=== PATIENT | female | born 1985 | race Caucasian/White ===

== ENCOUNTER 2018-06-16 03:22 | Inpatient (IN) | payer BC ==
[2018-06-16 03:57] VITALS: BMI 32.7
[2018-06-16] MEDS ORDERED: Lidocaine 1% (PF) 30 ML VIAL SC PRN (04:19)
[2018-06-16] MEDS ORDERED: Ondansetron HCl/PF 4 MG/2 ML Vial IVP PRN ×3 (04:19→23:32)
[2018-06-16] MEDS ORDERED: NS / Oxytocin 40 units/1000ml 1,000 ML IV PRN (04:19)
[2018-06-16] MEDS ORDERED: Promethazine HCl 25 MG/ML VIAL IM PRN ×2 (04:19→06:33)
[2018-06-16] MEDS ORDERED: HYDROcodone/Acetaminophen 5/325 mg Tablet PO PRN ×4 (04:19→23:32)
[2018-06-16] MEDS ORDERED: Ibuprofen 800 MG TAB PO PRN (04:19)
[2018-06-16] MEDS ORDERED: Butorphanol Tartrate 1 MG/ML VIAL SLOW IVP PRN (04:19)
--- NOTE | 2018-06-16 04:22 | PDOC.LDHP ---
Labor and Delivery H&P HPI: Patient of Vangie cervantes EGA 39 weeks 6 days Here for CTX every 5 minutes, no LOF 33 yp X1 EDC tomorrow, here for contractions. Was 2cm in office last week, now 4cm in triage. Patient eval done at 0420. review of systems: negative as per HPI Current gestational age (weeks): 39 (6) Due date: 06/17/18 Dating criteria: last menstrual period Grav: 2 Para: 1 OB History Details: X 1 Current complications: none Abnormal US findings: No Past Medical History: PCOS Current medications: pre-katlyn vitamins Previous surgical history: other (T&A) Allergies/Adverse Reactions: Allergies Allergy/AdvReac Type Severity Reaction Status Date / Time No Known Allergies Allergy Verified 06/16/18 04:05 Social history: none - Physical Exam Vital signs reviewed and normal: yes (111/82 afebrile) General: NAD Heart: RRR Lungs: CTAB Abdomen: gravid (EFW approx 6.5#) Extremeties: no edema FHT: category 1 [place] contractions every: every 3-6min - Vaginal Exam cm dilated: 4 (BOWI) Effacement: 90% Station: -2 - Assessment L&D Assessment: term patient in labor - Plan Plan: admit to L&D, labor augmentation if indicated, informed consent obtained, anesthesia consult for pain management, other (We will direct admit to Vangie Cervantes )
[2018-06-16] MEDS: Lactated Ringer's 1,000 ML IV SCH ×4 (04:30→18:08)
[2018-06-16 05:12] LABS: Hemoglobin 11.7 g/dL (12.0-16.0); Mean Corpuscular HGB CONC 35.7 g/dL (32.0-36.0); Mean Corpuscular Hemoglobin 29.8 pg (27.0-31.0); Mean Corpuscular Volume 83.6 fL (78.0-98.0); Mean Platelet Volume 7.5 fL (7.4-10.4); Platelet Count 182 thou/uL (130-400); RBC Distribution Width 18.3 % (11.5-14.5); Red Blood Cell (RBC) Count 3.91 mill/uL (4.20-5.40); White Blood Cell (WBC) Count 10.7 thou/uL (4.8-10.8)
[2018-06-16] MEDS ORDERED: Bupivacaine 0.5% 20 ML, fentaNYL Citrate/PF 400 MCG in Sodium Chloride 0.9% 72 ML EPIDURAL SCH (05:15)
[2018-06-16] MEDS ORDERED: DISCONTINUE ALL PREVIOUS NARCOTICS FS SCH (05:15)
[2018-06-16 05:40] LABS: Syphilis Antibody Nonreactive (Nonreactive); Syphilis Antibody Index 0.04 S/CO (<1.00 Non-Reactive)
[2018-06-16 05:41] LABS: HBSAg Index 0.15 S/CO (0-0.99); HIV (1/2) Antibody/Antigen Non-Reactive (NonReactive); Hep B Surf Ag Non-Reactive S/CO (NonReactive)
[2018-06-16] MEDS ORDERED: Acetaminophen 325 MG TAB PO PRN (06:33)
[2018-06-16] MEDS ORDERED: Eucerin (Mineral Oil/Petrolatum,White) 30 gm Jar TOP PRN (06:33)
[2018-06-16] MEDS ORDERED: diphenhydrAMINE 50 MG/ML VIAL IVP PRN (06:33)
[2018-06-16] MEDS ORDERED: ePHEDrine/0.9% NaCl/PF SYRINGE 50 mg/10 ml SLOW IVP PRN (06:33)
[2018-06-16] MEDS ORDERED: Naloxone HCl 0.4 mg/ml Vial IVP PRN ×2 (06:33)
[2018-06-16] MEDS ORDERED: Lactated Ringer's 500 ML IV PRN (06:33)
[2018-06-16] MEDS ORDERED: Communication Order-Pharmacy FS SCH (06:45)
[2018-06-16] MEDS ORDERED: fentaNYL Citrate/PF 400 MCG, Bupivacaine 0.5% 20 ML in Sodium Chloride 0.9% 72 ML EPIDURAL SCH (06:45)
[2018-06-16] MEDS ORDERED: Magnesium Sulfate 20 gm/500 ml 0 GM/0 ML BAG ONE (07:11)
[2018-06-16] MEDS ORDERED: Bupivacaine/Epinephrine 0.25% 30 ML VIAL ONE (09:00)
[2018-06-16] MEDS ORDERED: Lidocaine 2% PF Inj 2 ML VIAL ONE (09:00)
[2018-06-16] MEDS ORDERED: NS w/ Oxytocin 10 units 500 ML IV SCH (09:30)
--- NOTE | 2018-06-16 09:30 | PDOC.LDPN ---
Labor & Delivery Progress Note - Subjective Subjective: comfortable - Objective Vital signs reviewed and normal: yes General: resting Uterine fundus: non tender Dilation: 5 Effacement: 90% Station: -2 FHT: category 1 (baseline 115, Moderate variability. ) [place] contractions every: every 7 mins - Assessment (1) 40 weeks gestation of Code(s): Z3A.40 - 40 WEEKS GESTATION OF Current Visit: Yes Status : Acute Plan: labor augmentation, pitocin for augmentation (Discussed AROM vs. Pitocin with patient. Start on pitocin and reevaluate after 2-3 hours. )
--- NOTE | 2018-06-16 20:12 | PDOC.OPDEL ---
OB Operative/Delivery Note Delivery Dr/Surgeon: Helen Pre-Delivery Diagnosis: active labor Procedure/Post Delivery Dx: spontaneous vaginal delivery Weeks gestation: 40 Anesthesia: epidural - Findings A Sex: male Weight: 8 lb 14 oz - 1 min: 2 - 5 min: 9 - Additional Findings/Plan Placenta delivered: spontaneous Repaired Obstetrical Laceration: none Estimated blood loss: 350 see nurse note for qualitative blood loss Compilations/Other Findings: Shoulder dystocia relieved by [facility] and suprapubic pressure. cord was immediately clamped and cut and infant was handed off to the nurses for resuscitation. Jovani team called paged to delivery and arrived at 2 mins after delivery time. Post delivery plan: routine recovery
[2018-06-16] MEDS ORDERED: Milk Of Magnesia 30 ML UDCUP PO PRN (23:32)
[2018-06-16] MEDS ORDERED: Benzocaine/Menthol 20-0.5% 60 ML CAN TOP PRN (23:32)
[2018-06-16] MEDS ORDERED: Methylergonovine 0.2 MG/ML VIAL IM PRN (23:32)
[2018-06-16] MEDS ORDERED: NS / Oxytocin 40 units/1000ml 1,000 ML IV SCH (23:32)
[2018-06-16] MEDS ORDERED: Bisacodyl 10 MG SUPP PR PRN (23:32)
[2018-06-16] MEDS ORDERED: Ibuprofen 800 MG TAB PO SCH (23:45)
[2018-06-16] MEDS ORDERED: Docusate Calcium (SURFAK) 240 MG CAP PO SCH (23:45)
[2018-06-17 05:31] LABS: Hemoglobin 9.8 g/dL (12.0-16.0); Mean Corpuscular HGB CONC 34.9 g/dL (32.0-36.0); Mean Corpuscular Hemoglobin 29.4 pg (27.0-31.0); Mean Corpuscular Volume 84.2 fL (78.0-98.0); Mean Platelet Volume 7.1 fL (7.4-10.4); Platelet Count 151 thou/uL (130-400); RBC Distribution Width 18.2 % (11.5-14.5); Red Blood Cell (RBC) Count 3.32 mill/uL (4.20-5.40); White Blood Cell (WBC) Count 16.1 thou/uL (4.8-10.8)
[2018-06-17] MEDS ORDERED: Varicella virus, LIVE 0.5 ML VIAL SC ONE (09:00)
[2018-06-17] MEDS ORDERED: Adacel (T-DAP) 0.5 ML VIAL IM ONE (09:00)
[2018-06-17] MEDS ORDERED: Measles/Mumps/Rubella 10 MCG/0.5 ML VIAL SC ONE (09:00)
[2018-06-17] MEDS: Docusate Calcium (SURFAK) 240 MG CAP PO SCH (09:06)
[2018-06-17] MEDS: Prenatal Vitamin 1 TAB PO SCH (09:06)
[2018-06-17] MEDS: Ibuprofen 800 MG TAB PO SCH ×2 (09:07→16:40)
[2018-06-17] MEDS: Ferrous Sulfate 325 MG TAB PO SCH ×2 (09:07→18:40)
--- NOTE | 2018-06-17 17:02 | PDOC.PP ---
Post Progress Note Post Day #: 1 Subjective: doing well. okay. bleeding was heavy at frst, but is slowing down to about the same as a period now. PO intake tolerated: yes Flatus: yes Ambulation: yes Vital Signs (12 hours) Temp Pulse Resp BP 06/17/18 12:34 98.2 F 72 20 122/63 06/17/18 11:24 98.1 F 73 20 06/17/18 08:47 98.1 F 73 20 06/17/18 08:26 98.1 F 73 20 106/52 L Weight Weight 179 lb - Physical Examination General: NAD Cardiovascular: no m/r/g, RRR Respiratory: clear to auscultation bilaterally, non-labored breathing Abdominal: + bowel sounds Fundus firm & at: U-1 Skin: no rash Neurological: no gross focal deficits Psychiatric: A&Ox3, normal affect Result Diagrams: 06/17/18 05:14 Additional Labs: Post Labs Blood Type O POSITIVE 06/16/18 04:55 Hep Bs Antigen Non-Reactive S/CO (NonReactive) 06/16/18 04:55 (1) 40 weeks gestation of Code(s): Z3A.40 - 40 WEEKS GESTATION OF Status: Acute (2) (spontaneous vaginal delivery) Code(s): O80 - ENCOUNTER FOR FULL-TERM UNCOMPLICATED DELIVERY Status: Acute (3) Shoulder dystocia during labor and delivery, delivered Code(s): O66.0 - OBSTRUCTED LABOR DUE TO SHOULDER DYSTOCIA Status: Acute - Assessment/Plan A: G2 now P2 P: routine care.
[2018-06-18] MEDS: Ibuprofen 800 MG TAB PO SCH ×2 (00:33→09:58)
[2018-06-18] MEDS: Docusate Calcium (SURFAK) 240 MG CAP PO SCH ×2 (00:34→09:58)
[2018-06-18 08:51] VITALS: BP 133/63; TEMP 98
[2018-06-18] MEDS: Prenatal Vitamin 1 TAB PO SCH (09:58)
[2018-06-18] MEDS: Ferrous Sulfate 325 MG TAB PO SCH (09:58)
== END 2018-06-18 16:45 | disposition home or self-care (01) | DRG 775 ==
LOC: L&D/OP 03:22 → L&D 04:29 → 3SW 23:12
PROVIDERS: ADMIT Obstetrics & Gynecology; ATTEND Advanced Practice Midwife
PROC: 10E0XZZ Delivery of Products of Conception, External Approach (ICD-10-PCS; principal; 2018-06-16)
DX: O66.0 Obstructed labor due to shoulder dystocia (principal); Z3A.40 40 weeks gestation of pregnancy; Z37.0 Single live birth
CPT/HCPCS: 36415; 51702; 85027; 86780; 86850; 86900; 86901; 87340; 87389; 99285; J2001; J2405; J3010; J3475; J3490; J7050

== ENCOUNTER 2019-11-13 09:31 | Outpatient (CLI) | payer BC ==
--- NOTE | 2019-11-13 10:23 | MMO ---
Bilateral MAMMO Bilat Diag [facility]DI+[facility]E. CLINICAL HISTORY: Patient is 34 years old and is seen for diagnostic exam. VIEWS: The views performed were: bilateral craniocaudal with tomosynthesis; bilateral mediolateral oblique with tomosynthesis; and bilateral mediolateral with tomosynthesis. FILMS COMPARED: The present examination has been compared to a prior imaging study performed at [facility] on 11/13/2019. This study has been interpreted with the assistance of computer-aided detection. MAMMOGRAM FINDINGS: There are scattered fibroglandular densities. There is an intramammary lymph node seen in the right breast. There are no suspicious masses, suspicious calcifications, or new areas of architectural distortion. IMPRESSION: THERE IS NO MAMMOGRAPHIC EVIDENCE OF MALIGNANCY. A ROUTINE FOLLOW-UP MAMMOGRAM AT AGE 41 IS RECOMMENDED. THE RESULTS OF THIS EXAM WERE SENT TO THE PATIENT. ACR BI-RADS Category 2 - Benign finding MAMMOGRAPHY NOTE: 1. A negative mammogram report should not delay a biopsy if a dominant of clinically suspicious mass is present. 2. Approximately 10% to 15% of breast cancers are not detected by mammography. 3. Adenosis and dense breasts may obscure an underlying neoplasm. Reported by: BERTA OCAMPO MD Electonically Signed: [id number]
--- NOTE | 2019-11-13 10:34 | ULT ---
FOCUSED ULTRASOUND OF THE RIGHT BREAST: DATE: 11/13/2019. COMPARISON: None. HISTORY: A 34-year-old female with a focal area of right breast tenderness. FINDINGS: Focused ultrasound of the right breast at the 10 o'clock position demonstrates normal-appearing dense breast tissue. Incidental note is made of a normal small intramammary node. No worrisome findings. IMPRESSION: BIRADS 2: Benign findings. Recommend annual screening mammography to begin at age 40. Negative imag ing should not delay biopsy of a clinically suspicious abnormality. POS: CAROLINE
== END 2019-11-13 09:32 | disposition home or self-care (01) ==
LOC: BICMAMMO 09:31
PROVIDERS: ATTEND Advanced Practice Midwife
DX: N64.4 Mastodynia (principal)
CPT/HCPCS: 77066; G0279

== ENCOUNTER 2020-08-27 13:27 | Outpatient (CLI) | payer BC ==
--- NOTE | 2020-08-27 14:33 | MMO ---
Right Breast MAMMO Unilat Diag DDI RT+VALE. CLINICAL HISTORY: Patient is 35 years old and is seen for diagnostic exam and palpable abnormality in the right breast. VIEWS: The views performed were: right craniocaudal with tomosynthesis; right mediolateral oblique with tomosynthesis; and right mediolateral with tomosynthesis. FILMS COMPARED: The present examination has been compared to prior imaging studies performed at [facility] on 11/13/2019 and 08/27/2020. This study has been interpreted with the assistance of computer-aided detection. MAMMOGRAM FINDINGS: The breast is heterogeneously dense, which could obscure a lesion on mammography. 17 mm mass retroareolar right breast. Ultrasound confirms a solid 1.5 cm mass. Recommend ultrasound guided biopsy. IMPRESSION: FINDING IN THE RIGHT BREAST IS SUSPICIOUS. BIOPSY IS RECOMMENDED. THE RESULTS OF THIS EXAM WERE SENT TO THE PATIENT. ACR BI-RADS Category 4 - Suspicious abnormality - biopsy should be considered MAMMOGRAPHY NOTE: 1. A negative mammogram report should not delay a biopsy if a dominant of clinically suspicious mass is present. 2. Approximately 10% to 15% of breast cancers are not detected by mammography. 3. Adenosis and dense breasts may obscure an underlying neoplasm. Reported by: CARLOS DELUCA MD Electonically Signed: [id number]
--- NOTE | 2020-08-27 14:33 | ULT ---
ULTRASOUND RIGHT BREAST: 08/27/20 INDICATIONS: Ultrasound right breast performed to assess a palpable abnormality in the retroareolar region. A roun ded mass density was also noted on diagnostic mammogram at this location. FINDINGS: Ultrasound confirms a circumscribed hypoechoic solid mass in the retroareolar region at 8 o'clock mary ann suring 1.5 cm. The mass has benign characteristics; however, solid mass in a 35-year-old female must be biopsied to exclude malignancy. Ultrasound guided core biopsy is recommended and will be scheduled . IMPRESSION: BI-RADS 4: Suspicious Abnormality - Biopsy Should Be Considered Usually requires biopsy. Solid mass retroareolar region. Ultrasound guided core biopsy is recommended for diagnosis. POS: OFF
== END 2020-08-27 13:28 | disposition home or self-care (01) ==
LOC: BICMAMMO 13:27
PROVIDERS: ATTEND Advanced Practice Midwife
DX: N63.10 Unspecified lump in the right breast, unspecified quadrant (principal)
CPT/HCPCS: G0279

== ENCOUNTER 2020-09-09 06:58 | Outpatient (CLI) | payer BC ==
[2020-09-09 18:40] LABS: #Eosinphils 0.1 10x3/uL (0.0-0.5); #Monocytes 0.6 10x3/uL (0.0-1.1); #Neutrophils 4.1 10x3/uL (1.5-8.4); %Basophils 0.5 % (0.0-2.0); %Eosinophils 1.9 % (0.0-6.0); %Lymphocytes 25.6 % (18.0-47.0); %Monocytes 8.8 % (0.0-10.0); %Neutrophils 62.9 % (40.0-75.0); BHCG - Serum Negative (NEGATIVE); Hemoglobin 11.7 g/dL (12.0-16.0); Mean Corpuscular HGB CONC 33.1 G/DL (32.0-36.0); Mean Corpuscular Hemoglobin 29.4 PG (27.0-33.0); Mean Corpuscular Volume 88.7 fl (80.0-100.0); Mean Platelet Volume 10.4 fl (7.4-10.4); Platelet Count 232 10x3/uL (130-400); Pregs Control Background? CLEAR/WHITE (CLR/WHITE); Pregs Control Bar Appear? YES (CONTROL BAR); RBC Distribution Width 12.7 % (11.5-14.5); Red Blood Cell (RBC) Count 3.98 10x6/uL (3.90-5.20); White Blood Cell (WBC) Count 6.5 10x3/uL (4.5-11.0)
[2020-09-09 18:42] LABS: Anion Gap 12 mmol/L (10-20); BUN (Urea Nitrogen) 15 mg/dL (7.0-18.7); Calc. Creatinine Clearance 0 mL/min (70-130); Calcium 8.5 mg/dL (7.8-10.44); Carbon Dioxide 27 mmol/L (22-29); Chloride 105 mmol/L (98-107); Estimated GFR-MDRD 87; Glucose 67 mg/dL (70-105); Potassium 3.7 mmol/L (3.5-5.1); Sodium 140 mmol/L (136-145)
[2020-09-10 15:03] LABS: SARS-CoV-2 MS2 Positive; SARS-CoV-2 N Gene Negative; SARS-CoV-2 S Gene Negative; SARS-CoV-2 by NAA Not Detected (NotDetected); SARS-CoV-2 orf1ab Negative
== END 2020-09-09 06:59 | disposition home or self-care (01) ==
LOC: LABBT 06:58
PROVIDERS: ATTEND Specialist
DX: Z01.812 Encounter for preprocedural laboratory examination (principal); N63.10 Unspecified lump in the right breast, unspecified quadrant; Z20.828 Contact with and (suspected) exposure to other viral communicable diseases
CPT/HCPCS: 80048; 84703; 85025; 87635; U0003

== ENCOUNTER 2020-09-14 10:50 | Day surgery (SDC) | payer BC ==
[2020-09-13 10:25] VITALS: BMI 25.2
[2020-09-14] MEDS ORDERED: Ketorolac Tromethamine 30 MG/ML VIAL ONE (11:22)
[2020-09-14] MEDS ORDERED: Acetaminophen 500 MG TAB ONE (11:22)
[2020-09-14] MEDS ORDERED: Ondansetron PF 4 MG/2 ML Vial ONE (11:24)
[2020-09-14] MEDS ORDERED: Lidocaine 1% PF 5 ML VIAL ONE (11:24)
[2020-09-14] MEDS ORDERED: ePHEDrine 50 MG/ML VIAL ONE (11:24)
[2020-09-14] MEDS ORDERED: Dexamethasone 20 MG/5 ML VIAL ONE (11:24)
[2020-09-14] MEDS ORDERED: PROPOFOL 200 MG/20 ML VIAL ONE (11:24)
[2020-09-14] MEDS ORDERED: PHENYLEPHRINE-NS 100 MCG/ML 10 ML SYRINGE ONE (11:24)
[2020-09-14] MEDS ORDERED: Bupivacaine 0.25% HCL 30 ML VIAL ONE (14:01)
[2020-09-14] MEDS ORDERED: Lidocaine 1% w/Epinephrine 1:100K 20 ML VIAL ONE (14:01)
[2020-09-14] MEDS ORDERED: Midazolam HCl 2 mg/2 ml Vial ONE (14:06)
[2020-09-14] MEDS ORDERED: Fentanyl 100 MCG/2 ML VIAL ONE ×2 (14:08)
--- NOTE | 2020-09-15 14:09 | OP ---
DATE OF PROCEDURE: 09/14/2020 PREOPERATIVE DIAGNOSIS: Right breast symptomatic fibroadenoma. POSTOPERATIVE DIAGNOSIS: Right breast symptomatic fibroadenoma. OPERATION PERFORMED: Excision of right breast fibroadenoma. ANESTHESIA: General with laryngeal mask airway. INDICATIONS: Patient is a 35-year-old white female. She presented with a mass under the lateral aspect of her right areola. She had substantial discomfort associated with this. Biopsy in my office revealed that this is typical of a fibroadenoma. She is taken to the operating room at this time for excision. DESCRIPTION OF OPERATION: Informed consent was obtained. Patient was taken to the operating room, where general anesthesia obtained, patient in supine position. Right breast was prepped with ChloraPrep and draped in a sterile fashion. Ultrasound was utilized to identify the lesion. A lateral based circumareolar incision was created after local anesthetic was infiltrated using 0.25% Marcaine with epinephrine. Dissection was carried through skin and subcutaneous tissue. Dissection was carried within the breast to identify the lesion, which was typical of a fibroadenoma with a smooth rubbery surface. It was carefully dissected circumferentially and removed intact. It was passed off the field as a surgical specimen. Meticulous hemostasis obtained with electrocautery. The wound was closed in layers with 3-0 and 4-0 Monocryl. Dermabond was placed externally. There were no complications. The patient tolerated the procedure well and was taken to recovery room in stable condition. Job ID: [id number]
== END 2020-09-14 16:35 | disposition home or self-care (01) ==
LOC: SDC 10:50
PROVIDERS: ATTEND Specialist
PROC: 0H9T0ZX Drainage of Right Breast, Open Approach, Diagnostic (ICD-10-PCS; principal; 2020-09-14)
DX: D24.1 Benign neoplasm of right breast (principal); Z79.899 Other long term (current) drug therapy
CPT/HCPCS: 88305; J0690; J1100; J1885; J2250; J2405; J2704; J3010; J3490; S0020